=== PATIENT | female | born 1995 | race American Indian/Alaskan Native ===

== ENCOUNTER 2017-11-15 11:37 | Outpatient (CLI) | payer MEDICAID | END 2017-11-15 11:38 | disposition home or self-care (01) | LOC: VAS 11:37 | PROVIDERS: ATTEND Obstetrics & Gynecology | DX: M79.604 Pain in right leg (principal); M79.89 Other specified soft tissue disorders ==

== ENCOUNTER 2018-01-30 07:55 | Inpatient (IN) | payer MEDICAID ==
--- NOTE | 2018-01-30 13:35 | Ultrasound Report ---
ULTRASOUND BIOPHYSICAL PROFILE: History: Decreased movement Technique: Transabdominal ultrasound with Doppler interrogation. 2 - breathing movements 2 - movements 2 - posture and tone 2 - Qualitative amniotic fluid volume 8 - TOTAL SCORE OF POSSIBLE 8 Heart Rate (bpm) 137
[2018-01-30] MEDS ORDERED: PITOCin/NS 30 UNIT/500ML 30 UNITS/500 ML BAG IV SCH (16:00)
[2018-01-30 16:42] LABS: Hemoglobin 11.8 gm/dl (10.1-14.3); Mean Corpuscular HGB Conc 35 % (30-34); Mean Corpuscular Hemoglobin 29 pg (28-32); Mean Corpuscular Volume 83 fl (79-97); Platelet Count 164 K/mm3 (140-440); Red Blood Count 4.09 M/mm3 (3.65-5.03); Red Cell Distribution Width 18.7 % (13.2-15.2)
[2018-01-30] MEDS ORDERED: COLACE PO PRN (17:04)
[2018-01-30] MEDS ORDERED: POLYCILLIN/NS 2 GM/100 ML 2 GM/100 ML BAG IV ONE (17:04)
[2018-01-30] MEDS ORDERED: TYLENOL PO PRN ×2 (17:04→17:11)
[2018-01-30] MEDS ORDERED: FLAGYL PO ONE (18:00)
[2018-01-30] MEDS: LACTATED RINGERS 1,000 ML IV SCH (19:15)
[2018-01-31] MEDS: LACTATED RINGERS 1,000 ML IV SCH ×5 (02:11→18:03)
[2018-01-31] MEDS ORDERED: STADOL IV PRN (09:55)
[2018-01-31] MEDS ORDERED: BRETHINE IVP PRN (09:55)
[2018-01-31] MEDS ORDERED: ZOFRAN IV PRN ×2 (09:55→20:00)
[2018-01-31] MEDS ORDERED: SUBLIMAZE IV PRN (09:55)
[2018-01-31] MEDS ORDERED: BRETHINE SUB-Q PRN (09:55)
[2018-01-31] MEDS ORDERED: PHENERGAN PR PRN ×2 (09:55→20:00)
[2018-01-31] MEDS ORDERED: NARCAN 0.4 MG/1 ML IV PRN (09:55)
[2018-01-31] MEDS ORDERED: XYLOCAINE 2% INFILTRATI ONE (09:55)
[2018-01-31] MEDS ORDERED: MINERAL OIL PO PRN (09:55)
[2018-01-31] MEDS ORDERED: PITOCin/NS 20 UNIT/1000ML DRIP 20 UNITS/1,000 ML BAG IV SCH ×2 (10:00→20:00)
[2018-01-31] MEDS ORDERED: PITOCin/NS 30 UNIT/500ML 30 UNITS/500 ML BAG IV SCH ×2 (10:00)
[2018-01-31] MEDS ORDERED: POLYCILLIN/NS 2 GM/100 ML 2 GM/100 ML BAG IV SCH (10:00)
[2018-01-31] MEDS ORDERED: PRENATAL VITAMIN PO SCH (10:00)
[2018-01-31 10:17] LABS: Hematocrit 33.8 % (30.3-42.9); Hemoglobin 11.4 gm/dl (10.1-14.3); Mean Corpuscular HGB Conc 34 % (30-34); Mean Corpuscular Hemoglobin 29 pg (28-32); Mean Corpuscular Volume 85 fl (79-97); Platelet Count 157 K/mm3 (140-440); Red Cell Distribution Width 18.9 % (13.2-15.2)
[2018-01-31] MEDS ORDERED: NARCAN 2 MG/2 ML IV PRN (12:41)
--- NOTE | 2018-01-31 12:41 | Anesthesia Consultation ---
Anesthesia Consult and Med Hx Date of service: 01/31/18 - Airway Anesthetic Teeth Evaluation: Good ROM Head & Neck: Adequate Mental/Hyoid Distance: Adequate Mallampati Class: Class II Intubation Access Assessment: Probably Good - Pre-Operative Health Status ASA Pre-Surgery Classification: ASA2 Proposed Anesthetic Plan: Epidural, Spinal - Pulmonary Hx Asthma: No COPD: No Hx Pneumonia: No - Cardiovascular System Hx Hypertension: No - Central Nervous System Hx Seizures: No Hx Psychiatric Problems: No - Endocrine Hx Renal Disease: No Hx End Stage Renal Disease: No Hx Hypothyroidism: No Hx Hyperthyroidism: No - Hematic Hx Anemia: Yes (IRON BID) Hx Sickle Cell Disease: No - Other Systems Hx Alcohol Use: No
[2018-01-31] MEDS ORDERED: fentaNYL-BUPIV 2 MCG/ML-0.125% 200 MCG/100 ML BAG EPIDURAL SCH (13:00)
[2018-01-31] MEDS ORDERED: FLAGYL PO ONE ×2 (14:00→21:00)
[2018-01-31] MEDS: AMPICILLIN/NS 1 GM/50 ML 1 GM/50 ML BAG IV SCH ×2 (14:12→18:04)
[2018-01-31] MEDS ORDERED: CYTOTEC ONE (19:31)
--- NOTE | 2018-01-31 19:53 | History and Physical Report ---
History of Present Illness Date of examination: 01/31/18 Date of admission: 01/30/18 17:07 Chief complaint: contractions History of present illness: This is a 22 yo at 39 weeks for contractions. Occ contractions noted but strip non reactive. She stayed for observation and noted to be changed from 2 to 5cm. we kept patietn as patient went into labor. She is a [facility] patient that has been followed since 14 weeks. SHe has been treated and cured and noted trich again as of 01/13. 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 Past History Past Medical History: other (sickle cell trait ) Past Surgical History: no surgical history AUTOGLAZIER History: trichomonas Social history: no significant social history, single. denies: smoking, alcohol abuse, prescription drug abuse - Obstetrical History Expected Date of Delivery: 02/05/18 Actual Gestation: 39 Week(s) 2 Day(s) : 1 Para: 0 Hx # Term Pregnancies: 0 Number of Pregnancies: 0 Spontaneous Abortions: 0 Induced : 0 Medications and Allergies Allergies Allergy/AdvReac Type Severity Reaction Status Date / Time No Known Allergies Allergy Verified 01/18/14 15:40 Home Medications Medication Instructions Recorded Confirmed Last Taken Type Ferrous Sulfate [Feosol 325 MG tab] 1 tab PO BID 01/30/18 01/30/18 Unknown History Pnv No.95/Ferrous Fum/Folic AC 1 tab PO DAILY 01/30/18 01/30/18 Unknown History [ Vitamins Tablet] Valacyclovir HCl [Valtrex] 1 tab PO DAILY 01/30/18 01/30/18 Unknown History Active Meds: Active Medications Acetaminophen (Tylenol) 650 mg PO Q4H PRN PRN Reason: Pain MILD(1-3)/Fever >100.5/HARMON Last Admin: 01/31/18 04:38 Dose: 650 mg Butorphanol Tartrate (Stadol) 2 mg IV Q2H PRN PRN Reason: Pain , Severe (7-10) Docusate Sodium (Colace) 100 mg PO Q12H PRN PRN Reason: Constipation Ephedrine Sulfate (Ephedrine Sulfate) 10 mg IV Q2M PRN PRN Reason: Hypotension Fentanyl (Sublimaze) 100 mcg IV Q2H PRN PRN Reason: Labor Pain Oxytocin/Sodium Chloride (Pitocin/Ns 30 Unit/500ml) 30 units in 500 mls @ 1 mls /hr IV TITR MERISSA; Protocol Lactated Ringer's (Lactated Ringers) 1,000 mls @ 125 mls/hr IV DIRECT MERISSA Last Admin: 01/31/18 18:03 Dose: 125 mls/hr Oxytocin/Sodium Chloride (Pitocin/Ns 20 Unit/1000ml Drip) 20 units in 1,000 mls @ 125 mls/hr IV DIRECT MERISSA Last Admin: 01/31/18 19:24 Dose: 125 mls/hr Oxytocin/Sodium Chloride (Pitocin/Ns 30 Unit/500ml) 30 units in 500 mls @ 1 mls /hr IV TITR MERISSA; Protocol Fentanyl/Bupivacaine/Sodium Chlor (Fentanyl-Bupiv 2 Mcg/Ml-0.125%) 200 mcg in 100 mls @ 12 mls/hr EPIDURAL TITR MERISSA; Protocol Last Admin: 01/31/18 14:31 Dose: 12 mls/hr Ampicillin Sodium (Ampicillin/Ns 1 Gm/50 Ml) 1 gm in 50 mls @ 100 mls/hr IV Q4HR MERISSA; Protocol Last Admin: 01/31/18 18:04 Dose: 100 mls/hr Mineral Oil (Mineral Oil) 30 ml PO QHS PRN PRN Reason: Constipation Multivitamins/Iron/Calcium ( Vitamin) 1 each PO QDAY MERISSA Naloxone HCl (Narcan 2 Mg/2 Ml) 0.2 mg IV Q5M PRN PRN Reason: Respiratory sedation Ondansetron HCl (Zofran) 4 mg IV Q8H PRN PRN Reason: Nausea And Vomiting Promethazine HCl (Phenergan) 25 mg OR Q6H PRN PRN Reason: N/V if unable to take po Terbutaline Sulfate (Brethine) 0.25 mg SUB-Q ONCE PRN PRN Reason: Hyperstimulation/Hypertonicity Terbutaline Sulfate (Brethine) 0.25 mg IVP ONCE PRN PRN Reason: Hyperstimulation/Hypertonicity Review of Systems All systems: negative Genitourinary: contractions - Vital Signs Vital signs: Vital Signs Pulse BP 65 131/71 01/30/18 08:27 01/30/18 08:27 Temp Pulse Resp BP Pulse Ox 98.0 F 122 H 18 118/63 100 01/31/18 12:21 01/31/18 19:44 01/31/18 12:21 01/31/18 19:41 01/31/18 19:44 - Physical Exam Breasts: Positive: normal Cardiovascular: Regular rate, Normal S1 Lungs: Positive: Clear to auscultation, Normal air movement Abdomen: Positive: normal appearance, soft, normal bowel sounds. Negative: distention, tenderness, guarding Genitourinary (Female): Positive: normal external genitalia, normal perenium Vulva: both: normal Vagina: Positive: normal moisture Uterus: Positive: normal size Anus/Rectum: Positive: normal perianal skin, heme negative Extremities: Positive: normal Deep Tendon Reflex Grade: Normal +2 - Obstetrical FHR: category 1, category 2 Cervical Dilatation: 2 Results Result Diagrams: 01/31/18 09:59 Abnormal lab results 01/31/18 Range/Units 09:59 RDW 18.9 H (13.2-15.2) % All other labs normal. Assessment and Plan A/P IUP 39 weeks NRFHT observation BPP patient went into active labor so therefore proceeded to augment labor GBS + -abx
[2018-01-31] MEDS ORDERED: TORADOL IV PRN (20:00)
[2018-01-31] MEDS ORDERED: TUCKS PAD TP PRN (20:00)
[2018-01-31] MEDS ORDERED: MILK OF MAGNESIA PO PRN (20:00)
[2018-01-31] MEDS ORDERED: LANSINOH TP PRN (20:00)
[2018-01-31] MEDS ORDERED: TYLENOL PO PRN (20:00)
[2018-01-31] MEDS ORDERED: BENADRYL PO PRN (20:00)
[2018-01-31] MEDS ORDERED: ANUCORT-HC PR PRN (20:00)
[2018-01-31] MEDS ORDERED: DULCOLAX PR PRN (20:00)
[2018-01-31] MEDS ORDERED: SODIUM CHLORIDE FLUSH SYRINGE 10 ML IV NR (20:00)
[2018-01-31] MEDS ORDERED: PERCOCET 5/325 PO PRN (20:00)
[2018-01-31] MEDS ORDERED: PHENERGAN PO PRN (20:00)
[2018-01-31] MEDS ORDERED: CYTOTEC PR ONE (20:00)
[2018-01-31] MEDS ORDERED: NORCO 5/325 PO PRN (20:00)
[2018-01-31] MEDS: MOTRIN PO SCH (20:00)
--- NOTE | 2018-01-31 20:07 | Procedure Note ---
OB Delivery Note - Delivery Date of Delivery: 01/31/18 Surgeon: JACIEL CRUZ Estimated blood loss: other (600cc) - Vaginal Delivery presentation: vertex Delivery position: OA Intrapartum events: none Delivery induction: none Delivery augmentation: rupture of membranes, pitocin Delivery monitor: external FHT, external uterine Route of delivery: Delivery placenta: spontaneous Delivery cord: nuchal cord (x1) Delivery laceration: 2nd degree Delivery repair: vicryl Anesthesia: epidural Delivery comments: Patient was noted to be c/c/ and +1 and commenced to pushing a viable female weighing 6 pounds and 12 oz at 1918. She delivered in SHRUTI presentation with easilyy delivery of shoulders. Body cord noted. Apgars 8 and 9 . The cord was clamped and cut and handed to mom on chest. . The placenta delivered at 192 intact with 3 vessel cord. 2nd degree laceration repaired in normal fashion with a 2-0 vicry. EBL noted to be 600 ug and cytotec given 1000ug per rectum. Patient tolerated procedure well. - Infant A at 1 minute: 8 at 5 minutes: 9 Infant Gender: Female (6 pounds 12 oz.)
[2018-01-31 20:17] LABS: Hemoglobin 10.4 gm/dl (10.1-14.3); Mean Corpuscular HGB Conc 34 % (30-34); Mean Corpuscular Hemoglobin 29 pg (28-32); Mean Corpuscular Volume 85 fl (79-97); Platelet Count 181 K/mm3 (140-440); Red Blood Count 3.63 M/mm3 (3.65-5.03); Red Cell Distribution Width 19.4 % (13.2-15.2)
[2018-02-01] MEDS ORDERED: FLAGYL PO ONE (01:00)
[2018-02-01] MEDS: MOTRIN PO SCH ×4 (02:00→22:10)
[2018-02-01 08:16] LABS: Hematocrit 22.7 % (30.3-42.9); Hemoglobin 7.6 gm/dl (10.1-14.3)
--- NOTE | 2018-02-01 08:54 | Progress Note ---
Assessment and Plan O: VSS AF PP H/H: 10.4/31.0 A: Stable PP Day 1 P: D/C am Subjective - Subjective Date of service: 02/01/18 Patient reports: appetite normal, voiding normally, pain well controlled, ambulating normally : doing well, nursing well, bottle feeding Objective - Vital Signs Latest vital signs: Vital Signs Temp Pulse Resp BP BP Pulse Ox 02/01/18 04:00 98.1 F 108 H 16 117/71 99 01/31/18 21:35 97.8 F 107 H 16 117/68 99 01/31/18 20:56 125 H 130/61 01/31/18 20:41 115 H 125/60 01/31/18 20:13 126 H 131/58 01/31/18 20:09 121 H 99 01/31/18 20:04 121 H 100 01/31/18 19:59 97.9 F 123 H 18 100 01/31/18 19:56 120 H 120/74 01/31/18 19:54 131 H 99 01/31/18 19:49 119 H 100 01/31/18 19:44 122 H 100 01/31/18 19:41 127 H 118/63 01/31/18 19:39 126 H 100 01/31/18 19:26 121 H 141/70 01/31/18 18:56 77 130/60 01/31/18 18:41 71 138/78 01/31/18 18:27 71 137/77 01/31/18 18:11 75 138/74 01/31/18 18:07 80 83 L 01/31/18 18:04 83 99 01/31/18 17:59 74 100 01/31/18 17:57 71 135/80 01/31/18 17:54 113 H 95 01/31/18 17:50 61 73 L 01/31/18 17:49 65 89 01/31/18 17:44 79 86 01/31/18 17:43 68 98 01/31/18 17:42 69 133/62 01/31/18 17:39 115 H 93 01/31/18 17:34 85 97 01/31/18 17:33 50 L 93 01/31/18 17:29 71 99 01/31/18 17:27 75 90 01/31/18 17:26 86 133/75 09/26/18 17:24 73 99 18 17:22 70 72 L 01/31/18 17:19 104 H 100 18 17:14 97 H 100 18 17:11 86 159/86 18 17:09 88 99 18 17:04 80 100 18 16:59 75 98 01/31/18 16:57 73 130/82 01/31/18 16:54 73 100 01/31/18 16:49 88 99 18 16:44 77 99 01/31/18 16:42 97 H 125/77 01/31/18 16:41 74 92 01/31/18 16:39 88 77 L 01/31/18 16:36 71 93 01/31/18 16:34 72 100 01/31/18 16:29 80 100 01/31/18 16:27 74 114/73 01/31/18 16:24 79 98 01/31/18 16:19 75 98 01/31/18 16:15 97.9 F 79 18 116/72 98 01/31/18 16:14 75 98 01/31/18 16:12 79 116/72 01/31/18 16:11 83 79 L 01/31/18 16:09 81 98 01/31/18 16:04 84 97 01/31/18 16:03 84 93 01/31/18 15:59 89 99 01/31/18 15:57 69 107/67 01/31/18 15:53 83 86 01/31/18 15:48 76 98 01/31/18 15:46 80 89 18 15:42 85 99 18 15:38 79 82 L 01/31/18 15:33 69 100 18 15:32 80 94 18 15:28 78 95 18 15:26 73 116/73 94 18 15:23 73 100 18 15:19 72 93 18 15:18 64 100 18 15:13 71 100 18 15:11 81 125/77 18 15:08 78 100 18 15:03 66 100 18 14:58 72 100 01/31/18 14:56 65 127/75 01/31/18 14:52 68 100 01/31/18 14:48 71 100 01/31/18 14:43 71 99 01/31/18 14:41 73 132/78 01/31/18 14:38 70 99 01/31/18 14:32 68 99 01/31/18 14:28 83 96 01/31/18 14:27 81 137/75 01/31/18 14:23 75 99 01/31/18 14:22 69 84 01/31/18 14:18 77 100 01/31/18 14:12 72 140/70 99 01/31/18 14:10 59 L 75 L 01/31/18 14:08 72 100 01/31/18 14:03 76 99 01/31/18 13:57 71 100 01/31/18 13:56 77 133/82 01/31/18 13:53 79 98 01/31/18 13:48 82 99 01/31/18 13:43 84 100 01/31/18 13:41 81 140/99 01/31/18 13:37 80 100 01/31/18 13:32 77 100 01/31/18 13:27 83 136/84 100 01/31/18 13:22 69 99 01/31/18 13:17 70 100 01/31/18 13:12 69 127/72 99 01/31/18 13:07 75 100 01/31/18 13:02 72 99 01/31/18 12:58 72 98 01/31/18 12:55 81 114/68 01/31/18 12:53 67 115/66 98 01/31/18 12:51 78 119/63 01/31/18 12:49 72 120/61 01/31/18 12:47 70 120/56 99 01/31/18 12:45 75 114/55 01/31/18 12:44 80 127/60 01/31/18 12:42 70 99 01/31/18 12:41 83 114/69 01/31/18 12:39 82 116/70 01/31/18 12:37 82 116/67 98 01/31/18 12:36 77 119/66 01/31/18 12:32 82 97 01/31/18 12:31 96 H 114/63 01/31/18 12:29 80 113/71 01/31/18 12:27 83 99 01/31/18 12:22 90 98 01/31/18 12:21 98.0 F 81 18 139/70 139/70 98 Intake and Output 01/31/18 02/01/18 02/01/18 22:59 06:59 14:59 Intake Total 881.25 Output Total 1300 500 Balance -418.75 -500 Intake: IV 881.25 Lactated Ringers 1,000 ml 881.25 @ 125 mls/hr IV DIRECT MERISSA Rx#:[id number] Output: Urine 1300 500 Indwelling Catheter 1300 Void 500 Other: Total, Output Amount 750 250 # Voids Void 1 # Bowel Movements 1 Estimated Blood Loss 600 - Exam Lungs: Present: Normal air movement Abdomen: Present: normal appearance, soft. Absent: distention, tenderness Uterus: Present: normal, firm, tenderness, fundal height at umbilicus. Absent: bogginess Extremities: Present: normal - Labs Labs: Abnormal lab results 01/31/18 01/31/18 02/01/18 Range/Units 09:59 20:00 07:59 RBC 3.63 L (3.65-5.03) M/mm3 Hgb 7.6 L (10.1-14.3) gm/dl Hct 22.7 L D (30.3-42.9) % RDW 18.9 H 19.4 H (13.2-15.2) %
--- NOTE | 2018-02-01 08:55 | Discharge Summary ---
Providers - Providers Date of Admission: 01/30/18 17:07 Date of discharge: 02/02/18 Attending physician: JACKY PURCELL Primary care physician: JACKY PURCELL Hospitalization Reason for admission: active labor, IUP at term Delivery: Laceration: 2nd degree Other procedures: none Discharge diagnosis: IUP at term delivered baby: female Condition at discharge: Good Disposition: DC-01 TO HOME OR SELFCARE Plan - Discharge Medications Prescriptions: Ferrous Sulfate 325 mg PO TID #90 tablet. Ibuprofen [Motrin] 600 mg PO Q8H PRN #30 tablet PRN Reason: Pain oxyCODONE /ACETAMINOPHEN [Percocet 5/325] 1 tab PO Q6HR PRN #30 tablet PRN Reason: Pain - Provider Discharge Summary Activity: routine, no sex for 6 weeks, no heavy lifting 4 weeks, no strenuous exercise Diet: routine Instructions: routine Additional instructions: [] Smoking cessation referral if applicable(refer to patient education folder for contact #) [] Refer to [facility] Booklet Call your doctor immediately for: * Fever > 100.5 * Heavy vaginal bleeding ( >1 pad per hour) * Severe persistent headache * Shortness of breath * Reddened, hot, painful area to leg or breast * Drainage or odor from incision. * Keep incision clean and dry at all times and follow doctor's instructions regarding bathing/showering - Follow up plan Follow up: JACKY PURCELL MD [Primary Care Provider] - (RTO 4 weeks )
[2018-02-01] MEDS: PRENATAL VITAMIN PO SCH (10:30)
[2018-02-01] MEDS ORDERED: BOOSTRIX IM ONE (20:00)
[2018-02-01] MEDS ORDERED: M-M-R II VACCINE SUB-Q ONE (20:00)
[2018-02-02] MEDS: FEOSOL PO SCH ×2 (00:42→11:58)
[2018-02-02] MEDS: MOTRIN PO SCH ×2 (05:29→08:15)
[2018-02-02] MEDS: PRENATAL VITAMIN PO SCH (11:58)
[2018-02-02 20:18] VITALS: BP 118/76
== END 2018-02-02 22:52 | disposition home or self-care (01) | DRG 774 ==
LOC: TRG 07:55 → LD 17:07 → TRG 17:07 → OB 01-31 22:21
PROVIDERS: ADMIT Obstetrics & Gynecology; ATTEND Obstetrics & Gynecology
PROC: 10E0XZZ Delivery of Products of Conception, External Approach (ICD-10-PCS; principal; 2018-01-31)
PROC: 0KQM0ZZ Repair Perineum Muscle, Open Approach (ICD-10-PCS; 2018-01-31)
PROC: 3E0R3BZ Introduction of Anesthetic Agent into Spinal Canal, Percutaneous Approach (ICD-10-PCS; 2018-01-31)
PROC: 00HU33Z Insertion of Infusion Device into Spinal Canal, Percutaneous Approach (ICD-10-PCS; 2018-01-31)
PROC: 3E0234Z Introduction of Serum, Toxoid and Vaccine into Muscle, Percutaneous Approach (ICD-10-PCS; 2018-02-01)
DX: O69.81X0 Labor and delivery complicated by cord around neck, without compression, not applicable or unspecified (principal); O98.32 Other infections with a predominantly sexual mode of transmission complicating childbirth; Z3A.39 39 weeks gestation of pregnancy; Z37.0 Single live birth; O70.1 Second degree perineal laceration during delivery; Z23 Encounter for immunization; O99.824 Streptococcus B carrier state complicating childbirth; A60.00 Herpesviral infection of urogenital system, unspecified
CPT/HCPCS: 36415; 76819; 85014; 85018; 85027; 86592; 86850; 86900; 86901; 99211; G0463; J0290; J2590; J7120